=== PATIENT | male | born 1985 | race African-American/Black ===

== ENCOUNTER 2017-10-05 14:38 | Emergency (ER) | payer SELFPAY ==
[2017-10-05 14:44] VITALS: BP 149/90; PULSE 80; TEMP 97.8; BMI 25.7
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
[2017-10-05 17:05] LABS: URINE MARIJUANA THC NEGATIVE ng/ml (CUTOFF=50)
--- NOTE | 2017-10-05 17:06 | EKG ---
Test Reason : Blood Pressure : / mmHG Vent. Rate : 082 BPM Atrial Rate : 082 BPM P-R Int : 156 ms QRS Dur : 088 ms QT Int : 362 ms P-R-T Axes : 079 016 034 degrees QTc Int : 422 ms NORMAL SINUS RHYTHM ST ELEVATION, CONSIDER EARLY REPOLARIZATION, PERICARDITIS, OR INJURY ABNORMAL ECG NO PREVIOUS ECGS AVAILABLE Confirmed by BRIAN OCAMPO MD ([id number]) on 10/05/2017 5:06:37 PM Referred By: Confirmed By:BRIAN OCAMPO MD
== END 2017-10-05 17:41 | disposition home or self-care (01) ==
LOC: JERFT 14:38
DX: R07.89 Other chest pain (principal); F41.9 Anxiety disorder, unspecified
CPT/HCPCS: 80307; 93005; 93010; 99281-25

== ENCOUNTER 2018-04-08 18:33 | Emergency (ER) | payer SELFPAY ==
--- NOTE | 2018-04-08 18:43 | PDOC ---
Rapid Medical Evaluation Time Seen by Provider: 04/08/18 18:38 Medical Evaluation: Allergies Allergy/AdvReac Type Severity Reaction Status Date / Time No Known Allergies Allergy Verified 10/05/17 14:44 I have performed a brief in-person evaluation of this patient. The patient presents with a chief complaint of: toothache x 4 days. Rinsing with salt and peroxide. Took excedrin. Using orajel. Pertinent physical exam findings: Pain with palpation of right lower posterior molar. Is willing to have an inferior alveolar block I have ordered the following: nothing The patient will proceed to the ED for further evaluation. Discharge Disposition - Diagnosis Toothache - Referrals - Patient Instructions - Post Discharge Activity
[2018-04-08 18:57] VITALS: BP 136/77; PULSE 80; TEMP 99.2; BMI 25.0
--- NOTE | 2018-04-08 19:17 | PDOC ---
History of Present Illness - General Chief Complaint: Toothache Stated Complaint: TOOTHACHE, HEADACHE Time Seen by Provider: 04/08/18 18:38 History Source: Patient Exam Limitations: No Limitations - History of Present Illness Initial Comments: 04/08/18 19:17 Patient states had onset of dental pain approximately 2 weeks ago, states changed his diet, eating softer foods and pain went away. States 2 days ago pain recurred and is progressively worsening. Denies fever, denies any knowledge of fractures of teeth, is uncertain but thinks maybe his wisdom teeth. Pain is in the right inferior surface. Timing/Duration: unsure, getting worse Severity: moderate Associated Symptoms: denies: fever/chills Past History - Travel Traveled outside of the country in the last 30 days: No Close contact w/someone who was outside of country & ill: No - Past Medical History Allergies/Adverse Reactions: Allergies Allergy/AdvReac Type Severity Reaction Status Date / Time No Known Allergies Allergy Verified 04/08/18 18:42 Home Medications: Ambulatory Orders Amoxicillin - [Amoxicillin 500mg Capsule -] 500 mg PO TID #21 capsule 04/08/18 COPD: No - Suicide/Smoking/Psychosocial Hx Smoking History: Never smoked Hx Alcohol Use: No Drug/Substance Use Hx: No Substance Use Type: Alcohol Review of Systems - Review of Systems Able to Perform ROS?: Yes Is the patient limited Pashto proficient: Yes Constitutional: Yes: Symptoms Reported, Malaise HEENTM: Yes: See HPI. No: Symptoms Reported Respiratory: Yes: Symptoms reported, See HPI, Cough Musculoskeletal: Yes: See HPI. No: Symptoms Reported Neurological: Yes: Symptoms reported, See HPI, Headache All Other Systems: Reviewed and Negative *Physical Exam - Vital Signs Last Vital Signs Temp Pulse Resp BP Pulse Ox 99.2 F 80 20 136/77 99 04/08/18 18:35 04/08/18 18:35 04/08/18 18:35 04/08/18 18:35 04/08/18 18:35 - Physical Exam General Appearance: Yes: Nourished, Appropriately Dressed, Apparent Distress, Mild Distress HEENT: positive: EOMI, LUZ ELENA, Normal ENT Inspection, TMs Normal, Other ( bilateral lower wisdom teeth erupting and appear crooked. No swelling or abscess noted to gingival surface to either side but is tender to palpation.) Neck: positive: Supple. 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 Tylenol or Motrin for fever and pain Complete all medication as prescribed Seek dental appointment as soon as possible for evaluation of dental injury/pain Followup with private physician in one to 2 days as needed Return to emergency department for worsened symptoms, fevers, swelling to face or worsened pain - Post Discharge Activity Forms/Work/School Notes: Back to Work
[2018-04-08] MEDS ORDERED: KETOROLAC TROMETHAMINE 60 MG/2 ML VIAL IM ONE (19:21)
[2018-04-08] MEDS ORDERED: KETOROLAC TROMETHAMINE 60 MG/2 ML VIAL ONE (19:26)
== END 2018-04-08 19:50 | disposition home or self-care (01) ==
LOC: JER 18:33 → JERFT 18:33
PROC: 3E0233Z Introduction of Anti-inflammatory into Muscle, Percutaneous Approach (ICD-10-PCS; principal; 2018-04-08)
DX: K08.89 Other specified disorders of teeth and supporting structures (principal)
CPT/HCPCS: 99281-25

== ENCOUNTER 2018-04-09 21:17 | Emergency (ER) | payer SELFPAY ==
[2018-04-09 21:51] VITALS: BP 133/76; TEMP 98; BMI 23.1
--- NOTE | 2018-04-09 22:21 | PDOC ---
History of Present Illness - General Chief Complaint: Toothache Stated Complaint: TOOTHACHE - History of Present Illness Initial Comments: 33-year-old male presents for evaluation of toothache. He was seen yesterday placed on amoxicillin this pain has been constant. He has impacted wisdom teeth. He was seen in another hospital today and now he has a oral surgery appointment for removal of his for wisdom teeth. 04/09/18 22:18 Past History - Past Medical History Allergies/Adverse Reactions: Allergies Allergy/AdvReac Type Severity Reaction Status Date / Time No Known Allergies Allergy Verified 04/09/18 21:52 Home Medications: Ambulatory Orders Amoxicillin - [Amoxicillin 500mg Capsule -] 500 mg PO TID #21 capsule 04/08/18 Ibuprofen [Motrin -] 800 mg PO QID 04/09/18 COPD: No - Suicide/Smoking/Psychosocial Hx Smoking History: Never smoked Have you smoked in the past 12 months: No Hx Alcohol Use: No Drug/Substance Use Hx: No Substance Use Type: Alcohol Review of Systems - Review of Systems HEENTM: Yes: See HPI, Dental Problems All Other Systems: Reviewed and Negative *Physical Exam - Vital Signs Last Vital Signs Temp Pulse Resp BP Pulse Ox 98.0 F 16 133/76 100 04/09/18 21:47 04/09/18 21:47 04/09/18 21:47 04/09/18 21:47 - Physical Exam Comments: GENERAL: The patient is awake, alert, and fully oriented, in no acute distress. HEAD: Normal with no signs of trauma. ENT: Ears normal, nares patent, oropharynx clear without exudates. Moist mucous membranes. The right lower wisdom teeth appear impacted. NECK: Normal range of motion, supple without lymphadenopathy, JVD, or masses. EXTREMITIES: Normal range of motion, no edema. No clubbing or cyanosis. No cords, erythema, or tenderness. NEUROLOGICAL: Cranial nerves II through XII grossly intact. Normal speech, normal gait. PSYCH: Normal mood, normal affect. SKIN: Warm, Dry, normal turgor, no rashes or lesions noted. 04/09/18 22:19 Medical Decision Making - Medical Decision Making We'll give him 2 Percocet now for his pain but he will follow-up with oral surgery within the next day or 2. 04/09/18 22:20 *DC/Admit/Observation/Transfer Diagnosis at time of Disposition: Impacted molar - Discharge Dispostion Disposition: HOME Condition at time of disposition: Stable Decision to Admit order: No - Referrals - Patient Instructions Printed Discharge Instructions: DI for Impacted Tooth Additional Instructions: Return to the emergency room should her symptoms worsen or go unresolved. It's very important few not to drive you were treated with narcotics today. Please make sure he had a ride home as you specify to me in the emergency room. Follow- up with oral surgery. Should follow-up within the next 1-2 days for further evaluation and treatment options and possible tooth extraction - Post Discharge Activity
== END 2018-04-09 22:59 | disposition home or self-care (01) ==
LOC: JERFT 21:17
DX: K01.1 Impacted teeth (principal)
CPT/HCPCS: 99281-25